=== PATIENT | male | born 1990 | race Asian ===

== ENCOUNTER 2023-06-27 00:13 | Emergency (ER) | payer BC ==
[~2023-06-27] VITALS: Ht 177.8 cm; Wt 86.2 kg
[2023-06-27] MEDS ORDERED: MORPHINE SULFATE INJ 4 MG/ML DISP.SYRIN ONE (01:58)
[2023-06-27] MEDS ORDERED: ONDANSETRON HCL/PF 4 MG/2 ML VIAL ONE (01:59)
[2023-06-27] MEDS ORDERED: ONDANSETRON HCL/PF 4 MG/2 ML VIAL IV ONE (02:00)
[2023-06-27] MEDS ORDERED: MORPHINE SULFATE INJ 2 MG/ML DISP.SYRIN IV ONE (02:00)
[2023-06-27] MEDS ORDERED: PROPOFOL 20 ML IV ONE (02:15)
[2023-06-27] MEDS ORDERED: PROPOFOL 200 MG/20 ML VIAL IV ONE ×2 (02:30→03:00)
[2023-06-27] MEDS ORDERED: IV NS 0.9% 1,000 ML BAG IV ONE (03:00)
[2023-06-27 03:07] VITALS: BP 121/83; TEMP 98.6; O2SAT 100
== END 2023-06-27 03:08 | disposition home or self-care (01) ==
LOC: ER 00:26
DX: S03.03XA Dislocation of jaw, bilateral, initial encounter (principal); X58.XXXA Exposure to other specified factors, initial encounter; Y93.89 Activity, other specified; Y92.89 Other specified places as the place of occurrence of the external cause; Y99.8 Other external cause status
CPT/HCPCS: 99285; 21480; 96374; 70486; 96361; J2704; J2270; J2405; J7030; A4223